=== PATIENT | female | born 2000 | race Caucasian/White ===

== ENCOUNTER 2022-04-22 12:29 | Outpatient (CLI) | payer BC, SELFPAY | END 2022-04-22 12:30 | disposition home or self-care (01) | LOC: NFLDREF 12:30 | PROVIDERS: Visit Provider Obstetrics & Gynecology | DX: Z30.09 Encounter for other general counseling and advice on contraception (principal); Z12.4 Encounter for screening for malignant neoplasm of cervix; Z30.430 Encounter for insertion of intrauterine contraceptive device | CPT/HCPCS: 88174 ==